=== PATIENT | male | born 1960 | race Asian ===

== ENCOUNTER 2018-05-16 13:50 | Day surgery (SDC) | payer BC ==
[2018-05-16] MEDS ORDERED: PROPOFOL 60 ML (15:30)
[2018-05-16] MEDS ORDERED: LIDOCAINE 2% (SDV) 5 ML INJ (15:30)
== END 2018-05-16 16:56 | disposition home or self-care (01) ==
LOC: GIL 13:50
DX: Z12.11 Encounter for screening for malignant neoplasm of colon (principal); D12.3 Benign neoplasm of transverse colon; D49.0 Neoplasm of unspecified behavior of digestive system; K64.8 Other hemorrhoids; K29.70 Gastritis, unspecified, without bleeding; I25.10 Atherosclerotic heart disease of native coronary artery without angina pectoris; E11.9 Type 2 diabetes mellitus without complications; I10 Essential (primary) hypertension
CPT/HCPCS: 43239; 82962; 88305; 88312; 88341; 88342

== ENCOUNTER 2018-07-01 08:08 | Day surgery (SDC) | payer BC ==
[2018-07-01] MEDS ORDERED: FENTAnyl 50 MCG/ML VIAL (10:27)
[2018-07-01] MEDS ORDERED: PROPOFOL 40 ML (10:27)
[2018-07-01] MEDS ORDERED: LIDOCAINE 100 MG SYRINGE (10:27)
== END 2018-07-01 14:30 | disposition home or self-care (01) ==
LOC: GIL 08:08
DX: D3A.010 Benign carcinoid tumor of the duodenum (principal); K29.60 Other gastritis without bleeding; I10 Essential (primary) hypertension; E11.9 Type 2 diabetes mellitus without complications; I25.10 Atherosclerotic heart disease of native coronary artery without angina pectoris; E78.5 Hyperlipidemia, unspecified
CPT/HCPCS: 43239; 88305